=== PATIENT | male | born 1995 | race Caucasian/White ===

== ENCOUNTER 2018-02-09 19:21 | Emergency (ER) | payer OTHER, SELFPAY ==
[2018-02-09 19:28] VITALS: BP 126/76; PULSE 70; RESP 16; TEMP 37; O2SAT 98
--- NOTE | 2018-02-09 19:31 | DI.RAD_ITS ---
SYMPTOM/DIAGNOSIS: LEFT POST RIB PAIN, RIBS 3-5 PA AND LATERAL CHEST, LEFT RIBS: Comparison is made with 08 August 2012. The heart size is normal. The lungs appear clear. No pneumothorax seen. No rib fracture or thoracic spine fracture seen. Hardware related to cervical fusion is seen in the lower cervical spine. The left shoulder is unremarkable. IMPRESSION: Negative chest and left ribs.
[2018-02-09] MEDS: Acetaminophen 500 MG TAB 1000 MG PO (19:42)
[2018-02-09] MEDS: Ibuprofen 800 MG TAB PO (19:43)
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
[2018-02-09] MEDS: Lidocaine 5% Patch 1 PATCH TP (20:22)
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
[2018-02-09 20:50] VITALS: BP 126/69; PULSE 100; RESP 16; O2SAT 98
== END 2018-02-09 20:50 | disposition home or self-care (01) ==
PROVIDERS: Emergency Provider Student in an Organized Health Care Education/Training Program; PCP Family Medicine
DX: S20.222A Contusion of left back wall of thorax, initial encounter (principal); S80.211A Abrasion, right knee, initial encounter; S80.212A Abrasion, left knee, initial encounter; W28.XXXA Contact with powered lawn mower, initial encounter
CPT/HCPCS: 99283; 71046; 71100

== ENCOUNTER 2018-12-22 19:58 | Emergency (ER) | payer OTHER, SELFPAY ==
[2018-12-22 20:25] VITALS: BP 134/82; PULSE 78; RESP 20; TEMP 36.6; O2SAT 98
--- NOTE | 2018-12-22 20:30 | W.ED.GENAD ---
Discharge Plan Disposition Patient Disposition: HOME Condition: Good Discharge Details Chief Complaint: RashLesion Clinical Impression: Cellulitis, Tick bite Primary Care Provider: Adri Cazares V ED Provider: Mia Rojas Home Meds and New Rx's Prescriptions: New cephalexin [Keflex] 500 mg capsule 500 mg PO QID Qty: 20 RF: 0 Discharge Instructions Instructions: Cellulitis (ED), Tick Bite (ED) Additional Instructions: Encourage hydration. Tylenol and/or ibuprofen as needed for discomfort. I do not see any remaining piece of tick, however I am concerned he may be developing an infection. Please continue to monitor the area for the next 24 to 48 hours. If you notice an increase in pain, spreading of the redness, discharge please begin the antibiotics. If you start the antibiotics, please take the entire course. If you become ill with fever or other worsening symptoms please seek care urgently once again. If you continue to have this area of irritation please follow-up with primary care at the end of the week Referrals: Adri Cazares MD [Primary Care Provider] - Discharge Data Discharge Date/Time-TO BE ENTERED AT DEPARTURE: 12/22/18 21:11 Medical Decision Making Patient is a 23-year-old male with chief complaint of tick bite to the back of his head. Reports that he removed an engorged dog tick from the posterior right aspect of his scalp 5 days ago. Continues to note pain erythematous and uncomfortable area. Is not noted any discharge. No fevers or chills. Reports significant other did look at this and there was concern for possible embedded portion of the tick remaining. On exam, he has a 1 cm area of erythema at the site of the bite. It does appear that he removed a piece of the skin during the removal of the tick, this area has healed over. The patient does agree with this assessment. No evidence to suggest an abscess. Is not warm to the touch. Is minimal discomfort. States it is primarily bothersome when he is wearing mask at work that provides over this area. I do not see any evidence of remnant tic, appears to have removed the entire insect. Patient denies any constitutional symptoms Discussed with the patient that I am concerned for developing a cellulitis although this is not really apparent at this time. Will prescribe Keflex for the watch and wait approach. Advise follow-up with primary care later this week. He was given strict return precautions. All his questions and concerns were addressed and he is in agreement this plan. HPI General Mode of arrival: ambulatory. Date/Time Provider Initiated Documentation: 12/22/18 20:30. Limitations to Documentation: no limitations. Information obtained by: RN notes reviewed. History of Present Illness 23 year old M presents to the emergency department with the chief complaint of tick bite posterior head, described as mild (pain only with palpation over this area), Quality is described as aching, and is localized to the head. Patient reports no radiation. Patient started experiencing this day(s) (5) and it has been constant. No relieving factors improve symptom(s), Other factors that worsen symptoms (wears mask at work, strap goes over area) . Patient notes no other symptoms.. Patient did receive the following treatments prior to arrival, none Related Data Home Medications Medication Instructions Recorded Confirmed cephalexin [Keflex] 500 mg PO QID #20 cap 12/22/18 Previous Rx's Medication Instructions Recorded cephalexin [Keflex] 500 mg PO QID #20 cap 12/22/18 Allergies Allergy/AdvReac Type Severity Reaction Status Date / Time No Known Allergies Allergy Unverified 02/09/18 19:38 General COMFORT: 3 Review of Systems Constitutional Reports as per HPI, Denies chills and Denies fever(s) Musculoskeletal Reports as per HPI, Denies abnormal gait, Denies back pain, Denies myalgias and Denies arthralgias Integumentary/Breasts Reports as per HPI Neurologic Reports as per HPI, Denies abnormal gait, Denies sensory deficit and Denies paresthesias [facility] Social History Smoking/Tobacco Use Status: Current every day Tobacco Type: cigarettes Alcohol Intake: current Alcohol Intake frequency: a few times a week Alcohol type: beer Drug use: Never Do you feel safe in your relationship?: Yes Exam Const General: cooperative, healthy appearing, comfortable, no acute distress and well developed Nutritional Appearance: average body habitus and well nourished Orientation: alert and awake [facility] Head: abnormal to inspection (1cm area of erythema, central area superficially removed, no fluctuance), no palpable skull fracture, normocephalic, atraumatic, no Zavaleta's sign, no contusions and no lacerations Ears: hearing grossly normal bilaterally Resp Effort & Inspection: normal respiratory effort, able to speak in complete sentences and no respiratory distress Cardio Rate: regular rate Rhythm: regular rhythm Neuro General: alert and awake Cognition: normal cognition Speech: speech normal Gait: normal gait Sensory Exam: no sensory deficits noted Psych Appearance: grossly normal and well kempt Mental Status: mental status grossly normal Speech and Movement: speech and movement normal
== END 2018-12-22 21:11 | disposition home or self-care (01) ==
PROVIDERS: Emergency Provider Physician Assistant; PCP Family Medicine
DX: L03.811 Cellulitis of head [any part, except face] (principal); W57.XXXA Bitten or stung by nonvenomous insect and other nonvenomous arthropods, initial encounter
CPT/HCPCS: 99283

== ENCOUNTER 2019-07-17 08:37 | Emergency (ER) | payer OTHER, SELFPAY ==
[2019-07-17 08:41] VITALS: BP 136/83; PULSE 85; RESP 16; TEMP 36.8; O2SAT 97
--- NOTE | 2019-07-17 08:45 | DI.RAD_ITS ---
EXAM: XR CHEST 2V PA LATERAL CLINICAL HISTORY: Productive cough. TECHNIQUE: 2D digital imaging was performed. COMPARISON: No exams were available for comparison FINDINGS: LUNGS: Clear. No pleural abnormality seen. HEART: Normal. MEDIASTINUM: Normal. OTHER FINDINGS:Normal. BONE:Normal. Prior lower cervical spine surgery. IMPRESSION: No acute pulmonary findings. Findings were discussed with the emergency department on the date of the examination.
--- NOTE | 2019-07-17 08:55 | ED.GENADUL_ITS ---
Discharge Plan Disposition Patient Disposition: HOME Condition: Stable Discharge Details Chief Complaint: RespSymp Clinical Impression: URI (upper respiratory infection) Primary Care Provider: Adri Cazares V ED Provider: Karin Lipscomb Home Meds and New Rx's Prescriptions: New benzonatate 100 mg capsule 100 mg PO BID-TID PRN (Reason: cough) Qty: 10 RF: 0 albuterol sulfate [ProAir HFA] 90 mcg/actuation HFA aerosol inhaler 2 puff IH Q6H PRN (Reason: shortness of breath or wheezing) Qty: 8 RF: 0 Discharge Instructions Instructions: Upper Respiratory Infection (ED) Additional Instructions: Follow up with primary care provider in 3-5 days. Return to ED sooner if any worsening or concerns. Increase oral fluids. Please take Tylenol or Ibuprofen with food every 4-6 hours as needed for pain and swelling. Use medications as directed. Your chest x-ray today was negative for pneumonia or any cardiopulmonaryabnormality. Referrals: Adri Cazares MD [Primary Care Provider] - Medical Decision Making 23-year-old male presents with productive cough x1 week. Reports cough with yellow productive sputum. He is an asthmatic and current everyday smoker. He denies any chest pain, fever or chills. Denies any ear pain or sore throat. Chest x-ray performed and is within normal limits, flu swab obtained which is negative. Patient was given an albuterol ipratropium neb treatment which improved his symptoms. Patient prescribed Tessalon Perles for cough and albuterol inhaler. Discussed use at home care, verbalized understanding. This text was generated using XAPPmediaation system, please disregard any oddities of phrase or misspellings. HPI General Mode of arrival: ambulatory . Date/Time Provider Initiated Documentation: 07/17/19 08:54 . Limitations to Documentation: no limitations . Information obtained by: patient . HPI Narrative: 23-year-old male presents with productive cough for approximately 1 week. He is a smoker and an asthmatic. He denies fever or chills. No sore throat or ear pain. Denies abdominal pain, nausea vomiting diarrhea. Related Data Home Medications Medication Instructions Recorded Confirmed albuterol sulfate [ProAir HFA] 2 puff IH Q6H PRN #8 gm 07/17/19 benzonatate 100 mg PO BID-TID PRN #10 cap 07/17/19 Previous Rx's Medication Instructions Recorded albuterol sulfate [ProAir HFA] 2 puff IH Q6H PRN #8 gm 07/17/19 benzonatate 100 mg PO BID-TID PRN #10 cap 07/17/19 Allergies Allergy/AdvReac Type Severity Reaction Status Date / Time No Known Allergies Allergy Unverified 07/17/19 08:44 General Stated Complaint: RespSymp COMFORT: 4 Review of Systems Narrative: Constitutional: Negative for weight loss, alert and oriented, well groomed, normal body habitus, appears comfortable. HEENT: Denies trauma, headaches, blurry vision, nasal discharge, sore throat, trouble swallowing. Chest: Denies chest pain, palpitations, irregular rhythm, hypertension. Respiratory: Denies Shortness of breath, hemoptysis. Positive productive cough with yellow sputum. GI: Denies abdominal pain, nausea, vomiting, diarrhea, constipation. : Denies dysuria, hematuria, flank pain, rectal bleeding. Neuro: Denies dizziness, blurry vision, weakness, syncope, headache or facial numbness. Hematologic: Denies easy bruising, intolerance to heat or cold, hair loss. [facility] Medical History Asthma (Chronic) Concussion (Acute) Contusion (Acute) CTS (carpal tunnel syndrome) (Acute) Foot pain, right (Acute) Grief (Acute) Left carpal tunnel syndrome (Acute) Obesity (Chronic) Social History Smoking/Tobacco Use Status: Current every day Tobacco Type: cigarettes Smoking packs per day: 1 Smoking cigarettes per day: 20.0 Alcohol Intake: current Alcohol Intake frequency: a few times a week Alcohol type: beer Drug use: Never Do you feel safe in your relationship?: Yes Exam Narrative Exam Narrative: Constitutional: Allert and oriented x3. Appears stated age. Normal body habitus. Head: Normocephalic, no trauma. Eyes: Pupils PERRLA, Red reflex noted, EOM's intact. Eyelids symmetrical withour lesions, discharge, or swelling. ENT: Bilateral TM's WNL, External ear normal to inspection, no mastoid TTP, swelling, or erythema, Nasal turbinates WNL, no nasal discharge. Normal dentition, Posterior pharynx WNL, no exudate. Chest: RRR, Normal S1, S2, distal pulses intact. Resp: Lungs clear to auscultation bilaterally, no wheezes, rales, or rhonchi. Musculoskeletal: Normal gait, 5/5 strength to all four extremities. Skin: No suspicious rashes or lesions. Capillary refill ?2 sec. Neurologic: Cranial nerves II-XII intact. Alert and oriented x 3. DTR's intact. Hematologic/Lymphatic: No ecchymosis, no lymphadenopathy. Course Vital Signs Vital signs: Vital Signs Temperature 36.8 C 07/17/19 08:41 Pulse 85 07/17/19 08:41 Respiratory Rate 16 07/17/19 08:41 Blood Pressure 136/83 07/17/19 08:41 Pulse Oximetry 97 07/17/19 08:41 Temperature 36.8 C 07/17/19 08:41 Temperature Source Skin 07/17/19 08:41 Pulse 85 07/17/19 08:41 Respiratory Rate 16 07/17/19 08:41 Respiratory Effort 07/17/19 08:44 Respiratory Depth Normal 07/17/19 08:44 Blood Pressure 136/83 07/17/19 08:41 Blood Pressure Position Sitting 07/17/19 08:41 Pulse Oximetry 97 07/17/19 08:41 Oxygen Delivery Method Room Air 07/17/19 08:41 Oxygen Flow Rate 0 07/17/19 08:41 Pain Level 0 07/17/19 08:41
[2019-07-17 09:08] VITALS: RESP 1
[2019-07-17] MEDS: Albuterol/Ipratropium 3 ML UPD VIAL UPD (09:08)
[2019-07-17 09:38] VITALS: PULSE 80; RESP 1; RESP 15; O2SAT 97
== END 2019-07-17 11:21 | disposition home or self-care (01) ==
PROVIDERS: Emergency Provider Registered Nurse Emergency; PCP Family Medicine
DX: J06.9 Acute upper respiratory infection, unspecified (principal); J45.909 Unspecified asthma, uncomplicated; F17.210 Nicotine dependence, cigarettes, uncomplicated
CPT/HCPCS: 87449; 94640; 99283; 71046; J7620